=== PATIENT | female | born 1935 | race Caucasian/White ===

== ENCOUNTER 2024-06-15 15:25 | Emergency (ER) | payer MEDICARE, OTHER, SELFPAY ==
[2024-06-15] VITALS (9 sets, daily range): BP systolic 108–167; BP diastolic 53–88; PULSE 64–76; BMI 21.6
[2024-06-15 15:51] LABS: % Basophils 0.9 % (0-2); % Eosinophils 2.2 % (0-6); % Immature Granulocytes 0.4 % (0-0.5); % Lymphocytes 22.3 % (20.5-51.1); % Monocytes 13.6 % (1.7-9.3); % Neutrophils 60.6 % (42.2-75.2); Absolute Basophils 0.1 10^3/uL (0-0.2); Absolute Eosinophils 0.1 10^3/uL (0-0.7); Absolute Lymphocytes 1.2 10^3/uL (1.2-3.4); Absolute Monocytes 0.8 10^3/uL (0.1-0.6); Absolute Neutrophils 3.4 10^3/uL (1.4-6.5); Hematocrit 46.1 % (37.0-47.0); Hemoglobin 14.8 g/dL (12.0-16.0); Mean Corp Hgb Conc. 32.1 g/dL (33.0-37.0); Mean Corpuscular Hgb 32.5 pg (27.0-31.0); Mean Corpuscular Volume 101.1 fL (81.0-99.0); Nucleated Red Blood Cells % 0 %; Platelet Count 236 10^3/uL (130-400); Red Blood Cell Count 4.56 10^6/uL (4.20-5.40); Red Cell Dist. Width 12.4 % (11.5-14.5); White Blood Cell Count 5.6 10^3/uL (4.8-10.8)
--- NOTE | 2024-06-15 16:10 | ED.GENMED ---
History of Present Illness
<Yeni Varghese PA-C - Last Filed: 06/18/24 10:07>
General
Chief Complaint: Dizziness
Source: patient
Exam Limitations: none
Time Seen by Provider: 06/15/24 15:27
Nursing documentation reviewed up to this point in time: agreed with
History of Present Illness
History of Present Illness:
88 y/o F
chronic pack pain on opiates
has issue with constipation frequently because of her opiate use so she uses a bowel regimen when she gets constpated of metamucil, miralax etc and after using that it kicks in and usually causes significant bm/diarrhea; which she had yesterday; it
did ultimately stop
but then las tnight she had some dizziness, felt like th eroom was spinning; it wasn't severe, it was brief, she could still wlak; she went to bed and was fine overnight, slept all night and woke up and felt worse today
feels dizzy, room spinning at times with changing position and walking; felt difficulty walking throughout the day
she also feels extremely dehydrated, says she didn't really eat today and she knows she didn't drink enough gilda with the diarrhea from the stool regimen.
pt says one of the nurses at her assisted living assessed her and wanted her to come to the hospital
she feels generally weak
Past History
<Yeni Varghese PA-C - Last Filed: 06/18/24 10:07>
Past History
ED Past Medical History: Other (parkinsons deperession, chronic back pain) and Other
ED Past Surgical History: Orthopedic (laminectomy, lumbar fusion)
Social History
Tobacco: Non-smoker
Review of Systems
<Yeni Varghese PA-C - Last Filed: 06/18/24 10:07>
Review of Systems
Allergies reviewed?: Yes
All Other Systems: Not applicable
Phy Exam
<Yeni Varghese PA-C - Last Filed: 06/18/24 10:07>
Physical Exam
Physical Exam:
GENERAL: Alert , in no apparent distress\\
head: ncat
EYE: pupils equal and reactive , no obvious nystagmus
NECK: Supple
ENT: o/p clr,VERY DRY
CARDIAC: Regular rate and rhythm .no edema
LUNGS: Clear breath sounds bilaterally, no acute respiratory distress, no wheezes/rales/rhonchi
ABDOMEN: Soft, without focal tenderness, no r/g, no cvat, normal bowel sounds
NEUROLOGICAL: Alert and oriented, no focal neuro deficits, cn intact, normal strength and sensation
SKIN: Warm and dry, skin intact.
MUSCULOSKELETAL: No edema, well perfused. neg nitin's sign
PSYCH: flat affect; not suicidal; but depressed
Course
<Yeni Varghese PA-C - Last Filed: 06/18/24 10:07>
Orders/Labs/Results
Orders:
Orders
06/15/24 15:40
Electrocardiogram (*1) Urgent
Reason for Study: Vertigo / Dizzy
EKG- Treatment ONCE
06/15/24 15:41
Complete Blood Count/With Diff Urgent
06/15/24 16:05
Basic Metabolic Panel Urgent
06/15/24 16:08
0.9% Sodium Chloride 500 ml [Nss] 500 ml IV BOLUS
Meclizine [Antivert] 25 mg PO NOW STA
06/15/24 16:14
Orthostatic VS- Treatment ONCE
06/15/24 18:26
Carbidopa/Levodopa [Sinemet 25-100] 1 tablet PO NOW STA
Abnormal Lab Results
06/15/24
15:41
MCV 101.1 H fL
(81.0-99.0)
MCH 32.5 H pg
(27.0-31.0)
MCHC 32.1 L g/dL
(33.0-37.0)
Absolute Monos (auto) 0.8 H 10^3/uL
(0.1-0.6)
Monocytes % 13.6 H %
(1.7-9.3)
06/15/24 15:41
06/15/24 16:05
Vital Signs
Initial and Last Documented VS:
Initial Vital Signs
Temp Pulse Resp BP Pulse Ox
98.3 F 64 16 167/66 95
06/15/24 15:28 06/15/24 15:28 06/15/24 15:28 06/15/24 15:28 06/15/24 15:28
Last Documented Vital Signs
Temp Pulse Resp BP Pulse Ox
98.3 F 69 15 132/69 93
06/15/24 15:28 06/15/24 21:59 06/15/24 21:59 06/15/24 22:00 06/15/24 21:59
<Rey Bueno PA-C - Last Filed: 06/15/24 19:58>
Orders/Labs/Results
Orders:
Orders
06/15/24 15:40
Electrocardiogram (*1) Urgent
Reason for Study: Vertigo / Dizzy
EKG- Treatment ONCE
06/15/24 15:41
Complete Blood Count/With Diff Urgent
06/15/24 16:05
Basic Metabolic Panel Urgent
06/15/24 16:08
0.9% Sodium Chloride 500 ml [Nss] 500 ml IV BOLUS
Meclizine [Antivert] 25 mg PO NOW STA
06/15/24 16:14
Orthostatic VS- Treatment ONCE
06/15/24 18:26
Carbidopa/Levodopa [Sinemet 25-100] 1 tablet PO NOW STA
Abnormal Lab Results
06/15/24
15:41
MCV 101.1 H fL
(81.0-99.0)
MCH 32.5 H pg
(27.0-31.0)
MCHC 32.1 L g/dL
(33.0-37.0)
Absolute Monos (auto) 0.8 H 10^3/uL
(0.1-0.6)
Monocytes % 13.6 H %
(1.7-9.3)
06/15/24 15:41
06/15/24 16:05
Vital Signs
Initial and Last Documented VS:
Initial Vital Signs
Temp Pulse Resp BP Pulse Ox
98.3 F 64 16 167/66 95
06/15/24 15:28 06/15/24 15:28 06/15/24 15:28 06/15/24 15:28 06/15/24 15:28
Last Documented Vital Signs
Temp Pulse Resp BP Pulse Ox
98.3 F 69 15 132/69 93
06/15/24 15:28 06/15/24 21:59 06/15/24 21:59 06/15/24 22:00 06/15/24 21:59
<Yeni Varghese PA-C - Last Filed: 06/18/24 10:07>
MDM/Problems Addressed
Differential Diagnosis Includes:
vertigo, dehydration, electrolyte abnormality, depression, chronic pain
MDM/Problems Addressed:
88 y/o F with h/o meniere's disease in the remote past
chronic pain on opiates
constipation a few days ago, resolved after regimen but had a lot of stool and then didn't really eat/drink well and feels dehydrated
but having room spinning dizziness that reminds her of her menieres'
she has had positional dizziness, ith turning her head and bending over and getitng up
it was minimal last night and then much more significant today requiring her to need assistance walking
she feels dehydated, tired and weak
but she denies headache, neck pain, fever, chills, cp, sob, numbness/tingling/weakness
pt appears very dry on exam
she has stable vital signs
she has a flat affect and is mostly depressed about her chronic pain but she does not have any SI currently, no plan and say sshe has support via her childrne who live close by.
she does think that her chroinc pain causes a lot of problems
pt has no obvious nystagmus and neuro exam is intact
she was given IVF and meclizine, will w/u with labs to ensure no electrolyte disturbance;
s/o to pat pending reassessmemt
suspect BPPV but if pt is ataxic, will require more w/u.
<Rey Bueno PA-C - Last Filed: 06/15/24 19:58>
*Critical Care Note
Total Time (30-74mins, 75-104mins- exclusive of procedures): Not Applicable
<Rey Bueno PA-C - Last Filed: 06/15/24 19:58>
Update Note
Update Note:
Reevaluated the patient's several times. Her dizziness is improved. She is now eating her lunch. She is ambulated to the bathroom with a walker on her own account without any assistance needed. Patient was somewhat uneasy about going back [place] [facility] but I spoke that that [facility]. There is plenty of help for her in case she needs help throughout the night. Patient was reassured. Arrangements will be made for transportation back to [place] . Suspect vertigo. Will prescribe
more meclizine
ED Attending Note
<Yeni Varghese PA-C - Last Filed: 06/18/24 10:07>
-
Portions of this chart may have been created with voice recognition software.� Occasional wrong word or��sound alike� substitutions may have occurred due to the inherent limitations of voice recognition software.
Discharge Plan
Departure
Patient Disposition: Home (Routine Discharge)
Date of Disposition: 06/15/24
Time of Disposition: 19:57
Patient with high blood pressure during this ER visit?: No
Discharge Problem:
Dizziness
Instructions: Dizziness
Prescriptions:
New
meclizine 25 mg tablet
25 mg PO TID PRN (Reason: dizziness) Qty: 10 0RF
Referrals:
UNKNOWN - PT NOT,INTERVIEWE [Family Provider] -
Activity Restrictions/Additional Instructions:
Use meclizine if needed for dizziness. Return here for worsening symptoms otherwise follow-up with your doctor
Interventions
Interventions:
*Risk Screen - Suicide Last Done: 06/15/24 15:28
*General Assessment Last Done: 06/15/24 15:28
*Neglect/Abuse Screening Last Done: 06/15/24 15:28
ED- Fall Risk Assessment Last Done: 06/15/24 22:20
*ED COVID-19 Vaccine History Last Done: 06/15/24 15:28
*Nursing Disposition Last Done: 06/15/24 22:20
ED- Neurological Assessment Last Done: 06/15/24 15:28
ED- Cardiac Assessment Last Done: 06/15/24 22:20
ED Swallowing Screen Last Done: 06/15/24 15:38
Discharge Date and Time
Discharge Date/Time: 06/15/24 22:20
Print Language: [place]
[2024-06-15] MEDS: NSS 500 IV (16:26)
[2024-06-15] MEDS: ANTIVERT 25 MG PO (16:26)
[2024-06-15 16:34] LABS: Blood Urea Nitrogen 12 mg/dl (7-17); Calcium 9.2 mg/dl (8.4-10.2); Carbon Dioxide 28 mmol/L (22-30); Chloride 106 mmol/L (98-107); Estimated Creatinine Clearance 53 ml/min; Glucose 98 mg/dl (70-99); Sodium 141 mmol/L (135-145); eGFR > 60.00
[2024-06-15] MEDS: SINEMET 25-100 1 TABLET PO (18:30)
== END 2024-06-15 22:20 | disposition home or self-care (01) ==
LOC: EMR 15:25
PROVIDERS: Physician Assistant; EMERGENCY PHYSICIAN Emergency Medicine
DX: R42 Dizziness and giddiness (principal)
CPT/HCPCS: 99284; 96360; 80048; 85025; 93005